=== PATIENT | female | born 1950 | race Caucasian/White ===

== ENCOUNTER 2016-10-10 17:41 | Emergency (ER) | payer OTHER, MEDICARE ==
[~2016-10-10 17:41] MED LIST: ASPIR 8181 MG PO; COREG 12.5MG12.5 MG PO; HYZAAR 100-251 EACH PO; K-DUR TAB 20 M20 MEQ PO; LASIX20 MG PO; LEVEMIR100 UNIT/1 SQ; LIPITOR TAB 2020 MG PO; LISINOPRIL40 MG PO; METFORMIN HCL500 MG PO; METOPROLOL TART25 MG PO; NORVASC 5 MG TAB5 MG PO; TESSALON PERLE100 MG PO; ZITHROMAX250 MG PO
== END 2016-10-10 22:28 | disposition left against medical advice (07) ==
LOC: ER1 17:41
DX: Z53.21 Procedure and treatment not carried out due to patient leaving prior to being seen by health care provider (principal)

== ENCOUNTER → 2016-11-21 | Outpatient (CLI) | payer OTHER | LOC: EXRD 13:29 | DX: Z78.0 Asymptomatic menopausal state (principal); M85.88 Other specified disorders of bone density and structure, other site | CPT/HCPCS: 77080 ==

== ENCOUNTER 2017-01-05 14:00 | Emergency (ER) | payer OTHER | END 2017-01-05 16:10 | disposition home or self-care (01) | LOC: ER1 14:00 | DX: S70.01XA Contusion of right hip, initial encounter (principal); E11.9 Type 2 diabetes mellitus without complications; I10 Essential (primary) hypertension; W01.0XXA Fall on same level from slipping, tripping and stumbling without subsequent striking against object, initial encounter; Y92.69 Other specified industrial and construction area as the place of occurrence of the external cause; Y99.0 Civilian activity done for income or pay | CPT/HCPCS: 73502; 73552; 96372; 99283; J1885 ==

== ENCOUNTER 2020-09-17 09:40 | Inpatient (IN) | payer MEDICARE, OTHER ==
[~2020-09-17] VITALS: Ht 165.1 cm; Wt 60.4 kg
[~2020-09-17 09:40] MED LIST changes: +AMLODIPINE BESYL5 MG PO; +BUMETANIDE1 MG PO; +CARVEDILOL12.5 MG PO; +CATAPRES 0.1MG0.1 MG PO; +CATAPRES0.2 MG PO; +COREG 25MG TAB25 MG PO; +COZAAR 50MG TAB50 MG PO; +ELIQUIS2.5 MG PO; +FERROUS SULFAT325 M2 PO; +GLUCOTROL5 MG PO; +HYDRALAZINE HC100 MG PO; +HYDRALAZINE HCL50 MG PO; +HYGROTON TAB 2525 MG PO; +KEFLEX250 MG PO; +MINIPRESS2 MG PO; +NORVASC10 MG PO; +TRANDATE 300 M300 MG PO; +VIBRAMYCIN 100100 MG PO; +ZAROXOLYN/DIULO5 MG PO
[2020-09-17 10:41] LABS: HEMOGLOBIN 11.7 gm/dl (12.3-15.3); RED BLOOD COUNT 4.01 M/UL (4.00-5.10)
[2020-09-17] MEDS ORDERED: COZAAR100 MG PO (12:46)
[2020-09-17] MEDS ORDERED: RENVELA800 MG PO (18:32)
[2020-09-17] MEDS ORDERED: LOPRESSOR 25 MG25 MG PO (18:34)
[2020-09-18 02:42] LABS: HEMOGLOBIN 9.1 gm/dl (12.3-15.3); RED BLOOD COUNT 3.13 M/UL (4.00-5.10); WHITE BLOOD COUNT 8.6 K/UL (4.5-11.0)
[2020-09-19 05:19] LABS: HEMOGLOBIN 8.7 gm/dl (12.3-15.3); RED BLOOD COUNT 3.03 M/UL (4.00-5.10); WHITE BLOOD COUNT 8.1 K/UL (4.5-11.0)
--- NOTE | 2020-09-19 10:46 | NUR ---
AT 0845 PATIENT LEFT FLOOR TO ROOM 2110 FOR DIALYSIS.
[2020-09-22 03:29] LABS: HEMOGLOBIN 8.6 gm/dl (12.3-15.3); RED BLOOD COUNT 2.96 M/UL (4.00-5.10)
[2020-09-22] MEDS ORDERED: MEDROL4 MG PO (14:51)
== END 2020-09-22 20:53 | disposition home or self-care (01) | DRG 871 ==
LOC: ER1 09:40 → PROG CARE 11:56 → CDU 11:56 → MED SURG 4 11:56 → PROG CARE 19:12 → MED SURG 4 09-20 22:00
PROVIDERS: Emergency Medicine; Physician Assistant; ADMIT Internal Medicine
PROC: 8E0ZXY6 Isolation (ICD-10-PCS; principal; 2020-09-17)
PROC: XW033E5 Introduction of Remdesivir Anti-infective into Peripheral Vein, Percutaneous Approach, New Technology Group 5 (ICD-10-PCS; 2020-09-17)
PROC: 5A1D70Z Performance of Urinary Filtration, Intermittent, Less than 6 Hours Per Day (ICD-10-PCS; 2020-09-22)
DX: A41.9 Sepsis, unspecified organism (principal); U07.1 COVID-19; J96.01 Acute respiratory failure with hypoxia; N18.6 End stage renal disease; J12.82 Pneumonia due to coronavirus disease 2019; I13.2 Hypertensive heart and chronic kidney disease with heart failure and with stage 5 chronic kidney disease, or end stage renal disease; I50.32 Chronic diastolic (congestive) heart failure; J90 Pleural effusion, not elsewhere classified; E87.5 Hyperkalemia; E78.5 Hyperlipidemia, unspecified; E11.22 Type 2 diabetes mellitus with diabetic chronic kidney disease; Z99.2 Dependence on renal dialysis; Z83.3 Family history of diabetes mellitus; Z82.49 Family history of ischemic heart disease and other diseases of the circulatory system
CPT/HCPCS: 0240U; 36415; 36600; 71045; 80048; 80053; 82550; 82553; 82803; 82962; 83605; 83735; 83874; 83880; 84484; 85025; 85027; 85610; 86900; 86901; 86927; 87040; 90935; 90937; 93005; 96365; 96366; 96367; 96372; 96375; 99285; J0696; J1100; J2405; J7030

== ENCOUNTER → 2021-02-10 | Outpatient (CLI) | payer MEDICARE, OTHER ==
[~2021-02-10] MED LIST changes: -CATAPRES0.2 MG PO; +CLONIDINE HCL0.2 MG PO; +COZAAR50 MG PO; +LOPRESSOR 25 MG25 MG PO; +MEDROL4 MG PO; +PROTONIX40 MG PO; +RENVELA800 MG PO
== END ==
LOC: RAD 16:34
DX: R06.02 Shortness of breath (principal); J90 Pleural effusion, not elsewhere classified; J98.11 Atelectasis; R91.8 Other nonspecific abnormal finding of lung field
CPT/HCPCS: 71046

== ENCOUNTER → 2021-04-14 | Outpatient (CLI) | payer MEDICARE, OTHER ==
[~2021-04-14] MED LIST changes: +CATAPRES0.2 MG PO; -CLONIDINE HCL0.2 MG PO; +COZAAR100 MG PO; -COZAAR50 MG PO; -PROTONIX40 MG PO
== END ==
LOC: HEART 5 13:30
DX: R06.02 Shortness of breath (principal); I48.19 Other persistent atrial fibrillation
CPT/HCPCS: 93306

== ENCOUNTER → 2021-04-17 | Outpatient (CLI) | payer MEDICARE, OTHER ==
[~2021-04-17] MED LIST changes: -CATAPRES0.2 MG PO; +CLONIDINE HCL0.2 MG PO; -COZAAR100 MG PO; +COZAAR50 MG PO; +PROTONIX40 MG PO
== END ==
LOC: EROP 16:11
DX: Z20.822 Contact with and (suspected) exposure to COVID-19 (principal)
CPT/HCPCS: U0002

== ENCOUNTER 2021-04-20 10:03 | Inpatient (IN) | payer MEDICARE, OTHER ==
[~2021-04-20] VITALS: Ht 165.1 cm; Wt 61.4 kg
[~2021-04-20 10:03] MED LIST changes: -CLONIDINE HCL0.2 MG PO; -COZAAR50 MG PO; -PROTONIX40 MG PO
[2021-04-20 11:29] LABS: RED BLOOD COUNT 3.91 M/UL (4.00-5.10); WHITE BLOOD COUNT 11.3 K/UL (4.5-11.0)
[2021-04-20] MEDS ORDERED: COZAAR50 MG PO (12:46)
[2021-04-20] MEDS ORDERED: HYDRALAZINE HCL50 MG PO (15:00)
[2021-04-20] MEDS ORDERED: PROTONIX40 MG PO (16:42)
[2021-04-20] MEDS ORDERED: CLONIDINE HCL0.2 MG PO (18:30)
[2021-04-21 04:10] LABS: HEMOGLOBIN 9.2 gm/dl (12.3-15.3); WHITE BLOOD COUNT 9.6 K/UL (4.5-11.0)
[2021-04-21 04:12] LABS: RED BLOOD COUNT 3.26 M/UL (4.00-5.10)
[2021-04-22 08:14] LABS: HBSAG SCREEN Negative (Negative); HEP A AB, IGM Negative (Negative); HEP B CORE AB, IGM Negative (Negative); HEP C VIRUS AB <0.1 (0.0-0.9)
[2021-04-22 11:09] LABS: HEMOGLOBIN 9.5 gm/dl (12.3-15.3); RED BLOOD COUNT 3.44 M/UL (4.00-5.10); WHITE BLOOD COUNT 10.2 K/UL (4.5-11.0)
[2021-04-22 18:46] LABS: RBC (AUTOMATED) 800 (0-100000); WBC (AUTOMATED) 52 (0-500)
[2021-04-22 18:47] LABS: MONONUCLEAR CELLS 88.5 (75-100); POLYMORPHONUCLEAR % 11.5 (0-25)
[2021-04-22 18:56] LABS: LDH, BODY FLUID 37 U/L; TOTAL PROTEIN, BODY FLUID 1.6 gm/dL
--- NOTE | 2021-04-23 17:53 | NUR ---
REPORT PATIENT ELEVATED SUGAR TO DR CHAIDEZ. SHE INSTRUCTED ME TO GIVE 20UNITS
--- NOTE | 2021-04-24 16:14 | NUR ---
PATIENT LEFT PER STAFF TO DIALYSIS.
[2021-04-25 09:51] LABS: HEMOGLOBIN 8.3 gm/dl (12.3-15.3); WHITE BLOOD COUNT 7.7 K/UL (4.5-11.0)
[2021-04-25 09:52] LABS: RED BLOOD COUNT 2.96 M/UL (4.00-5.10)
[2021-04-26 08:12] LABS: HEMOGLOBIN 7.4 gm/dl (12.3-15.3); WHITE BLOOD COUNT 7.5 K/UL (4.5-11.0)
[2021-04-26 08:14] LABS: RED BLOOD COUNT 2.63 M/UL (4.00-5.10)
[2021-04-27 03:20] LABS: HEMOGLOBIN 7.8 gm/dl (12.3-15.3); RED BLOOD COUNT 2.82 M/UL (4.00-5.10); WHITE BLOOD COUNT 8.1 K/UL (4.5-11.0)
[2021-04-28 02:54] LABS: HEMOGLOBIN 7.7 gm/dl (12.3-15.3); RED BLOOD COUNT 2.78 M/UL (4.00-5.10); WHITE BLOOD COUNT 7.3 K/UL (4.5-11.0)
[2021-04-29 04:05] LABS: HEMOGLOBIN 8.6 gm/dl (12.3-15.3); RED BLOOD COUNT 3.09 M/UL (4.00-5.10); WHITE BLOOD COUNT 9.2 K/UL (4.5-11.0)
[2021-04-29 14:38] LABS: ADENOVIRUS F 40/41 Not Detected (Negative); ASTROVIRUS Not Detected (Negative); CAMPYLOBACTER Not Detected (Negative); CLOSTRIDIUM DIFFICILE TOX A/B Not Detected (Negative); CRYPTOSPORIDIUM Not Detected (Negative); E.COLI 0157 Not Detected (Negative); ENTAMOEBA HISTOLYTICA Not Detected (Negative); ENTEROAGGREGATIVE E.COLI (EAEC Not Detected (Negative); ENTEROPATHOGENIC E.COLI (EPEC) Not Detected (Negative); ENTEROTOXIGENIC E.COLI (ETEC) Not Detected (Negative); GIARDIA LAMBLIA Not Detected (Negative); NOROVIRUS GI/GII Not Detected (Negative); PLESIOMONAS SHIGELLOIDES Not Detected (Negative); ROTOVIRUS A Not Detected (Negative); SALMONELLA Not Detected (Negative); SAPOVIRUS Not Detected (Negative); SHIG/ENTEROINVAS.ECOLI (EIEC) Not Detected (Negative); SHIGA-LIK TOX.PRO.E.COLI (STEC Not Detected (Negative); VIBRIO Not Detected (Negative); VIBRIO CHOLERAE Not Detected (Negative); YERSINIA ENTEROCOLITICA Not Detected (Negative)
[2021-04-30 07:32] LABS: HEMOGLOBIN 8.4 gm/dl (12.3-15.3); RED BLOOD COUNT 3.06 M/UL (4.00-5.10)
[2021-04-30 07:35] LABS: WHITE BLOOD COUNT 6.6 K/UL (4.5-11.0)
[2021-05-01 06:32] LABS: HEMOGLOBIN 7.4 gm/dl (12.3-15.3); WHITE BLOOD COUNT 5.6 K/UL (4.5-11.0)
[2021-05-01 06:33] LABS: RED BLOOD COUNT 2.69 M/UL (4.00-5.10)
[2021-05-01 15:47] LABS: HEMOGLOBIN 7.4 gm/dl (12.3-15.3)
[2021-05-02 09:02] LABS: HEMOGLOBIN 7.2 gm/dl (12.3-15.3); RED BLOOD COUNT 2.64 M/UL (4.00-5.10); WHITE BLOOD COUNT 5.7 K/UL (4.5-11.0)
[2021-05-02 20:21] LABS: HEMOGLOBIN 8.5 gm/dl (12.3-15.3)
[2021-05-03 06:44] LABS: HEMOGLOBIN 8.1 gm/dl (12.3-15.3); WHITE BLOOD COUNT 6.5 K/UL (4.5-11.0)
[2021-05-03 07:12] LABS: RED BLOOD COUNT 2.96 M/UL (4.00-5.10)
[2021-05-03 15:29] LABS: HEMOGLOBIN 9.2 gm/dl (12.3-15.3)
[2021-05-05 10:05] LABS: HEMOGLOBIN 9.9 gm/dl (12.3-15.3)
[2021-05-05 10:09] LABS: RED BLOOD COUNT 3.54 M/UL (4.00-5.10); WHITE BLOOD COUNT 8.3 K/UL (4.5-11.0)
[2021-05-06 07:15] LABS: HEMOGLOBIN 8.6 gm/dl (12.3-15.3); WHITE BLOOD COUNT 7.4 K/UL (4.5-11.0)
[2021-05-06 07:16] LABS: RED BLOOD COUNT 3.07 M/UL (4.00-5.10)
[2021-05-07 06:11] LABS: HEMOGLOBIN 8.2 gm/dl (12.3-15.3); RED BLOOD COUNT 2.98 M/UL (4.00-5.10); WHITE BLOOD COUNT 6.1 K/UL (4.5-11.0)
[2021-05-07] MEDS ORDERED: IMODIUM CAP 2 MG2 MG PO (18:28)
[2021-05-07] MEDS ORDERED: MELATONIN3 MG PO (18:28)
[2021-05-07] MEDS ORDERED: FLORANEX GRANU1 EACH PO (18:28)
[2021-05-07] MEDS ORDERED: LOPRESSOR 25 MG25 MG PO (18:28)
[2021-05-08 06:08] LABS: HEMOGLOBIN 9.1 gm/dl (12.3-15.3); RED BLOOD COUNT 3.33 M/UL (4.00-5.10); WHITE BLOOD COUNT 6.2 K/UL (4.5-11.0)
--- NOTE | 2021-05-08 09:45 | NUR ---
REPORT CALLED TO BRIDGET AT [facility] AT 0972.
== END 2021-05-08 10:41 | disposition home health service (06) | DRG 871 ==
LOC: ER1 10:03 → PROG CARE 14:37 → MED SURG 4 14:37 → CDU 14:37 → PROG CARE 19:40 → MED SURG 4 04-29 12:49
PROVIDERS: Internal Medicine; Internal Medicine Nephrology; Physician Assistant; Student in an Organized Health Care Education/Training Program; ADMIT Internal Medicine
PROC: 5A1D70Z Performance of Urinary Filtration, Intermittent, Less than 6 Hours Per Day (ICD-10-PCS; 2021-04-21)
PROC: 0W993ZZ Drainage of Right Pleural Cavity, Percutaneous Approach (ICD-10-PCS; 2021-04-22)
PROC: 5A1D70Z Performance of Urinary Filtration, Intermittent, Less than 6 Hours Per Day (ICD-10-PCS; 2021-04-22)
PROC: 5A1D70Z Performance of Urinary Filtration, Intermittent, Less than 6 Hours Per Day (ICD-10-PCS; 2021-04-24)
PROC: 5A1D70Z Performance of Urinary Filtration, Intermittent, Less than 6 Hours Per Day (ICD-10-PCS; 2021-04-27)
PROC: 5A1D70Z Performance of Urinary Filtration, Intermittent, Less than 6 Hours Per Day (ICD-10-PCS; 2021-04-29)
PROC: 5A1D70Z Performance of Urinary Filtration, Intermittent, Less than 6 Hours Per Day (ICD-10-PCS; 2021-05-01)
PROC: 30233N1 Transfusion of Nonautologous Red Blood Cells into Peripheral Vein, Percutaneous Approach (ICD-10-PCS; 2021-05-02)
PROC: 5A1D70Z Performance of Urinary Filtration, Intermittent, Less than 6 Hours Per Day (ICD-10-PCS; 2021-05-04)
PROC: 5A1D70Z Performance of Urinary Filtration, Intermittent, Less than 6 Hours Per Day (ICD-10-PCS; 2021-05-06)
PROC: 0W9B3ZZ Drainage of Left Pleural Cavity, Percutaneous Approach (ICD-10-PCS; principal; 2021-05-07)
DX: A41.9 Sepsis, unspecified organism (principal); J18.9 Pneumonia, unspecified organism; I50.33 Acute on chronic diastolic (congestive) heart failure; N18.6 End stage renal disease; J96.21 Acute and chronic respiratory failure with hypoxia; I13.2 Hypertensive heart and chronic kidney disease with heart failure and with stage 5 chronic kidney disease, or end stage renal disease; J93.9 Pneumothorax, unspecified; E87.1 Hypo-osmolality and hyponatremia; J90 Pleural effusion, not elsewhere classified; J98.11 Atelectasis; N25.81 Secondary hyperparathyroidism of renal origin; I48.21 Permanent atrial fibrillation; I44.2 Atrioventricular block, complete; Z20.822 Contact with and (suspected) exposure to COVID-19; R65.20 Severe sepsis without septic shock; E11.65 Type 2 diabetes mellitus with hyperglycemia; E11.22 Type 2 diabetes mellitus with diabetic chronic kidney disease; E78.5 Hyperlipidemia, unspecified; E04.1 Nontoxic single thyroid nodule; E87.5 Hyperkalemia; I08.2 Rheumatic disorders of both aortic and tricuspid valves; I48.0 Paroxysmal atrial fibrillation; D63.1 Anemia in chronic kidney disease; I27.20 Pulmonary hypertension, unspecified; R19.7 Diarrhea, unspecified; Z90.49 Acquired absence of other specified parts of digestive tract; Z79.01 Long term (current) use of anticoagulants; Z99.2 Dependence on renal dialysis; Z98.890 Other specified postprocedural states; Z82.49 Family history of ischemic heart disease and other diseases of the circulatory system; Z83.3 Family history of diabetes mellitus
CPT/HCPCS: 36415; 36430; 36600; 71045; 71046; 71250; 74022; 80048; 80053; 80069; 80074; 80202; 81001; 82270; 82550; 82553; 82728; 82803; 82962; 83036; 83540; 83550; 83605; 83615; 83631; 83690; 83735; 83874; 84100; 84132; 84157; 84439; 84443; 84484; 85014; 85018; 85025; 85027; 85610; 85730; 86850; 86900; 86901; 86920; 87040; 87045; 87046; 87070; 87086; 87449; 87507; 89051; 90937; 93005; 94760; 96374; 96375; 97110; 97110-GP-CQ; 97116; 97116-GP-CQ; 97161; 97530; 97530-GP-CQ; 99285; A6212; G0257; J0692; J0885; J1756; J2270; J2405; J3370; J7070; P9016; Q4081; Q5105; U0002

== ENCOUNTER 2021-08-24 10:12 | Inpatient (IN) | payer MEDICARE, OTHER ==
[~2021-08-24] VITALS: Ht 165.1 cm; Wt 58.1 kg
[~2021-08-24 10:12] MED LIST changes: +CLONIDINE HCL0.2 MG PO; +COZAAR50 MG PO; +FLORANEX GRANU1 EACH PO; +IMODIUM CAP 2 MG2 MG PO; +LOPRESSOR 50 MG50 MG PO; +MELATONIN3 MG PO; -NORVASC10 MG PO; +PROTONIX40 MG PO
[2021-08-24 10:47] LABS: HEMOGLOBIN 11.8 gm/dl (12.3-15.3); RED BLOOD COUNT 4.41 M/UL (4.00-5.10); WHITE BLOOD COUNT 11.1 K/UL (4.5-11.0)
[2021-08-24] MEDS ORDERED: JANUVIA25 MG PO (14:27)
[2021-08-24] MEDS ORDERED: BASAGLAR K100 UNIT/1 SQ (14:27)
[2021-08-24] MEDS ORDERED: HYDROCODON-ACE1 EAC4 PO (14:29)
[2021-08-25 02:18] LABS: HEMOGLOBIN 10.1 gm/dl (12.3-15.3); RED BLOOD COUNT 3.77 M/UL (4.00-5.10); WHITE BLOOD COUNT 9.5 K/UL (4.5-11.0)
[2021-08-26 06:57] LABS: HEMOGLOBIN 9.7 gm/dl (12.3-15.3); RED BLOOD COUNT 3.64 M/UL (4.00-5.10); WHITE BLOOD COUNT 6.7 K/UL (4.5-11.0)
[2021-08-27 06:57] LABS: HEMOGLOBIN 9.1 gm/dl (12.3-15.3); RED BLOOD COUNT 3.49 M/UL (4.00-5.10); WHITE BLOOD COUNT 6.2 K/UL (4.5-11.0)
--- NOTE | 2021-08-27 09:44 | NUR ---
0944-PT COMPLAINING OF DIZZINESS, PT ASSESSED NEURO CHECKS WITHIN NORMAL LIMITS. BP 132/[address] CHAIDEZ NO NEW ORDERS. WILL CONTINUE TO MONITOR.
[2021-08-28 04:44] LABS: HEMOGLOBIN 8.6 gm/dl (12.3-15.3); RED BLOOD COUNT 3.29 M/UL (4.00-5.10); WHITE BLOOD COUNT 6.4 K/UL (4.5-11.0)
[2021-08-28] MEDS ORDERED: ASPIRIN EC81 MG PO (08:20)
[2021-08-28 09:27] LABS: HEMOGLOBIN 11.1 gm/dl (12.3-15.3); RED BLOOD COUNT 4.12 M/UL (4.00-5.10); WHITE BLOOD COUNT 9.7 K/UL (4.5-11.0)
[2021-08-28] MEDS ORDERED: NORVASC10 MG PO (20:27)
== END 2021-08-28 20:50 | disposition home or self-care (01) | DRG 64 ==
LOC: ER1 10:12 → MED SURG 4 13:08 → CDU 13:08 → 3 EAST 15:59 → MED SURG 4 19:54
PROVIDERS: Emergency Medicine; Internal Medicine; Physician Assistant; ADMIT Internal Medicine
PROC: 5A1D70Z Performance of Urinary Filtration, Intermittent, Less than 6 Hours Per Day (ICD-10-PCS; 2021-08-24)
PROC: 5A1D70Z Performance of Urinary Filtration, Intermittent, Less than 6 Hours Per Day (ICD-10-PCS; 2021-08-25)
PROC: B24BZZZ Ultrasonography of Heart with Aorta (ICD-10-PCS; principal; 2021-08-27)
PROC: 5A1D70Z Performance of Urinary Filtration, Intermittent, Less than 6 Hours Per Day (ICD-10-PCS; 2021-08-28)
DX: I63.9 Cerebral infarction, unspecified (principal); N18.6 End stage renal disease; I21.A1 Myocardial infarction type 2; I13.2 Hypertensive heart and chronic kidney disease with heart failure and with stage 5 chronic kidney disease, or end stage renal disease; I50.32 Chronic diastolic (congestive) heart failure; I44.2 Atrioventricular block, complete; E87.2 Acidosis; J96.11 Chronic respiratory failure with hypoxia; J90 Pleural effusion, not elsewhere classified; I48.20 Chronic atrial fibrillation, unspecified; Z20.822 Contact with and (suspected) exposure to COVID-19; I27.20 Pulmonary hypertension, unspecified; E11.22 Type 2 diabetes mellitus with diabetic chronic kidney disease; E87.5 Hyperkalemia; I25.10 Atherosclerotic heart disease of native coronary artery without angina pectoris; E11.649 Type 2 diabetes mellitus with hypoglycemia without coma; E78.5 Hyperlipidemia, unspecified; I08.2 Rheumatic disorders of both aortic and tricuspid valves; I95.9 Hypotension, unspecified; Z79.4 Long term (current) use of insulin; Z79.82 Long term (current) use of aspirin; Z99.2 Dependence on renal dialysis; Z79.01 Long term (current) use of anticoagulants; Z83.3 Family history of diabetes mellitus; Z79.899 Other long term (current) drug therapy; Z90.49 Acquired absence of other specified parts of digestive tract; Z98.890 Other specified postprocedural states; Z95.0 Presence of cardiac pacemaker; Z88.8 Allergy status to other drugs, medicaments and biological substances
CPT/HCPCS: ECHO; 36415; 70450; 70544; 70551; 71045; 80048; 80053; 82009; 82550; 82553; 82962; 83605; 83735; 83874; 83880; 84100; 84484; 85025; 87040; 90935; 90937; 93005; 93306; 94760; 96365; 96375; 97110-GP-CQ; 97116-GP-CQ; 97162; 97165; 99285; J0610; J0696; U0002

== ENCOUNTER 2021-08-30 03:50 | Inpatient (IN) | payer MEDICARE, OTHER ==
[~2021-08-30] VITALS: Ht 165.1 cm; Wt 58.1 kg
[~2021-08-30 03:50] MED LIST changes: +ASPIRIN EC81 MG PO; +HYDROCODON-ACE1 EAC4 PO; +JANUVIA25 MG PO; +NORVASC10 MG PO
[2021-08-30 04:14] LABS: RED BLOOD COUNT 4.03 M/UL (4.00-5.10); WHITE BLOOD COUNT 14.9 K/UL (4.5-11.0)
[2021-08-30] MEDS ORDERED: GLUCOTROL5 MG PO (08:38)
[2021-08-31 05:55] LABS: RED BLOOD COUNT 4.1 M/UL (4.00-5.10); WHITE BLOOD COUNT 13.9 K/UL (4.5-11.0)
--- NOTE | 2021-09-01 03:58 | NUR ---
UPON CHANGE OF SHIFT ROUNDING THE PATIENTS 1700 ANTIBIOTIC WAS NOT GIVEN BECAUSE RN STATED SHE DIDNT WANT TO RUN IT BECAUSE SHE WAS IN THE CHAIR. I WAS ASKED TO GIVE IT ONCE SHE WAS BACK IN BED.
[2021-09-01 09:06] LABS: HEMOGLOBIN 10.2 gm/dl (12.3-15.3); RED BLOOD COUNT 3.73 M/UL (4.00-5.10); WHITE BLOOD COUNT 12.5 K/UL (4.5-11.0)
[2021-09-02 07:01] LABS: HEMOGLOBIN 10.6 gm/dl (12.3-15.3); RED BLOOD COUNT 3.94 M/UL (4.00-5.10); WHITE BLOOD COUNT 10.1 K/UL (4.5-11.0)
--- NOTE | 2021-09-02 15:58 | NUR ---
GAVE REPORT TO VINAY AT [facility]. VINAY STATED THAT SHE NEEDED SOMETHING FROM WEAVE ROOM SUPERVISOR, TASH, AND NEEDED TO SPEAK WITH HER BUT WE WERE BOTH UNABLE TO MAKE CONTACT WITH HER. HH STILL ABLE TO SEE PATIENT WEATHER PERMITTING ON THE DAYS TO COME.
== END 2021-09-02 19:59 | disposition home or self-care (01) | DRG 640 ==
LOC: ER1 03:50 → MED SURG 4 06:14 → CDU 06:14 → MED SURG 4 16:51
PROVIDERS: Internal Medicine; Physician Assistant; Physician Assistant Medical; ADMIT Internal Medicine Infectious Disease
PROC: 5A1D70Z Performance of Urinary Filtration, Intermittent, Less than 6 Hours Per Day (ICD-10-PCS; 2021-08-30)
PROC: 5A1D70Z Performance of Urinary Filtration, Intermittent, Less than 6 Hours Per Day (ICD-10-PCS; principal; 2021-09-02)
DX: E87.5 Hyperkalemia (principal); N18.6 End stage renal disease; I21.A1 Myocardial infarction type 2; Z20.822 Contact with and (suspected) exposure to COVID-19; I48.20 Chronic atrial fibrillation, unspecified; I13.2 Hypertensive heart and chronic kidney disease with heart failure and with stage 5 chronic kidney disease, or end stage renal disease; I50.32 Chronic diastolic (congestive) heart failure; E11.65 Type 2 diabetes mellitus with hyperglycemia; I27.20 Pulmonary hypertension, unspecified; R11.2 Nausea with vomiting, unspecified; E11.22 Type 2 diabetes mellitus with diabetic chronic kidney disease; I35.0 Nonrheumatic aortic (valve) stenosis; Z99.2 Dependence on renal dialysis; Z79.01 Long term (current) use of anticoagulants; Z79.4 Long term (current) use of insulin; Z79.82 Long term (current) use of aspirin; Z99.81 Dependence on supplemental oxygen; Z86.73 Personal history of transient ischemic attack (TIA), and cerebral infarction without residual deficits; Z90.49 Acquired absence of other specified parts of digestive tract; Z88.5 Allergy status to narcotic agent; Z83.3 Family history of diabetes mellitus
CPT/HCPCS: 0240U; 71045; 80048; 80053; 82009; 82550; 82553; 82803; 82962; 83605; 83690; 83735; 83874; 84132; 84484; 85025; 85027; 85652; 86140; 90937; 93005; 94760; 96374; 96375; 96376; 97110-GP-CQ; 97116-GP-CQ; 97161; 99285; C9113; G0378; J1335; J2405

== ENCOUNTER 2021-09-04 12:17 | Inpatient (IN) | payer MEDICARE, OTHER ==
[~2021-09-04] VITALS: Ht 165.1 cm; Wt 58.5 kg
[2021-09-04 14:48] LABS: HEMOGLOBIN 11.2 gm/dl (12.3-15.3); RED BLOOD COUNT 4.02 M/UL (4.00-5.10); WHITE BLOOD COUNT 11.5 K/UL (4.5-11.0)
[2021-09-05 05:46] LABS: HEMOGLOBIN 11.8 gm/dl (12.3-15.3); RED BLOOD COUNT 4.18 M/UL (4.00-5.10); WHITE BLOOD COUNT 12.7 K/UL (4.5-11.0)
[2021-09-05] MEDS ORDERED: PROTONIX40 MG PO (13:20)
[2021-09-05] MEDS ORDERED: BASAGLAR K100 UNIT/1 SQ (14:27)
[2021-09-05] MEDS ORDERED: HYDRALAZINE HCL50 MG PO (15:32)
--- NOTE | 2021-09-05 23:58 | NUR ---
SPOKE WITH JIN AND SON INFORMED THEM OF PATIENS PASSING. KRIS CALLED SPOKE WITH MARTA PETIT, NO DICISION AT THIS TIME.
--- NOTE | 2021-09-06 00:58 | NUR ---
KRIS CALLS AT THIS TIME, REPORTS NO TO RELEASE PATIENT TO FAMILY TO HOME AT THIS TIME. THEY HAVE BEEN UNABLE TO REACH THE FAMILY ABOUT DONATION.
--- NOTE | 2021-09-06 01:54 | NUR ---
AT THIS TIME KRIS CAN NOT RULE OUT DUE TO PATIENTS BEING TO UPSET TO MAKE ANY DICISIONS REGUARDING DONATION. I THEN CALLED THE HOME AND ASK THEM TO COME PICK PATIENT UP AND HOLD FOR KRIS.
--- NOTE | 2021-09-06 05:21 | NUR ---
[facility] JUST LEFT THE FACILITY WITH THE BODY
== END 2021-09-06 10:45 | disposition expired | DRG 280 ==
LOC: ER1 12:17 → CDU 19:16 → PROG CARE 09-05 10:07
PROVIDERS: Internal Medicine; Physician Assistant Medical; ADMIT Internal Medicine
PROC: 3E033XZ Introduction of Vasopressor into Peripheral Vein, Percutaneous Approach (ICD-10-PCS; principal; 2021-09-04)
DX: I13.2 Hypertensive heart and chronic kidney disease with heart failure and with stage 5 chronic kidney disease, or end stage renal disease (principal); N18.6 End stage renal disease; I21.A1 Myocardial infarction type 2; Z20.822 Contact with and (suspected) exposure to COVID-19; Z66 Do not resuscitate; E87.2 Acidosis; J98.11 Atelectasis; I50.9 Heart failure, unspecified; E11.22 Type 2 diabetes mellitus with diabetic chronic kidney disease; I27.20 Pulmonary hypertension, unspecified; D63.1 Anemia in chronic kidney disease; E86.0 Dehydration; R51.9 Headache, unspecified; I48.91 Unspecified atrial fibrillation; D69.6 Thrombocytopenia, unspecified; E11.65 Type 2 diabetes mellitus with hyperglycemia; Z99.2 Dependence on renal dialysis; Z79.01 Long term (current) use of anticoagulants; Z86.73 Personal history of transient ischemic attack (TIA), and cerebral infarction without residual deficits; Z79.4 Long term (current) use of insulin; Z91.81 History of falling; Z90.49 Acquired absence of other specified parts of digestive tract; Z98.890 Other specified postprocedural states; Z88.6 Allergy status to analgesic agent; Z83.3 Family history of diabetes mellitus
CPT/HCPCS: 36415; 70450; 71045; 72131; 72192; 80053; 82009; 82550; 82553; 82962; 83605; 83690; 83735; 83874; 84484; 85025; 87040; 93005; 96374; 99285; J7042; U0002